=== PATIENT | male | born 1965 | race African-American/Black ===

== ENCOUNTER 2017-12-20 23:20 | Emergency (ER) | payer OTHER ==
[2017-12-20 23:34] VITALS: BMI 35.5
--- NOTE | 2017-12-21 00:42 | PDOC ---
History of Present Illness - General Chief Complaint: Pain Stated Complaint: Syncope/Near Syncope Time Seen by Provider: 12/21/17 00:20 - History of Present Illness Initial Comments: 12/21/17 01:52 The patient is a 52-year-old male, with a past medical history of HTN and prediabetes, who presents to the ED s/p head injury today. Patient states that he slipped while showering, was unable to grab onto anything, and hit the left side of his head against the sink. Patient lost consciousness but does not recall for how long. He is now complaining of headache at the site of the head injury and lightheadedness. Tyler reports that she gave the patient 2 Motrin tablets and applied ice the side of his head. The patient was in his usual state of health this morning. Not on any AC. Denies drug or etoh use today. The patient denies any fever, chills, nausea, vomiting, diarrhea, or abdominal pain. Denies any chest pain or shortness of breath. Denies any numbness or tingling of the extremities. Denies any urinary complaints. Allergies: NKA Surgical History: Appendectomy. PCP: Dr. Durant Past History - Past Medical History Allergies/Adverse Reactions: Allergies Allergy/AdvReac Type Severity Reaction Status Date / Time No Known Allergies Allergy Verified 12/20/17 23:31 Home Medications: Ambulatory Orders Valsartan [Diovan] 160 mg PO DAILY 06/10/17 Asthma: No Cardiac Disorders: No COPD: No Diabetes: No (Pre-diabetic) HTN: Yes Hypercholesterolemia: No Seizures: No - Surgical History Appendectomy: Yes (2-3 yrs ago) - Suicide/Smoking/Psychosocial Hx Smoking History: Never smoked Have you smoked in the past 12 months: No Information on smoking cessation initiated: No Hx Alcohol Use: No Drug/Substance Use Hx: No Substance Use Type: None Review of Systems - Review of Systems Comments:: 12/21/17 01:58 GENERAL/CONSTITUTIONAL: No fever or chills. No weakness. HEAD, EYES, EARS, NOSE AND THROAT: No change in vision. No ear pain or discharge. No sore throat. GASTROINTESTINAL: No nausea, vomiting, diarrhea or constipation. GENITOURINARY: No dysuria, frequency, or change in urination. CARDIOVASCULAR: No chest pain or shortness of breath. RESPIRATORY: No cough, wheezing, or hemoptysis. MUSCULOSKELETAL: No joint or muscle swelling or pain. No neck or back pain. SKIN: No rash NEUROLOGIC: (+)Headache, lightheadedness, loss of consciousness. No vertigo or change in strength/sensation. ENDOCRINE: No increased thirst. No abnormal weight change. HEMATOLOGIC/LYMPHATIC: No anemia, easy bleeding, or history of blood clots. ALLERGIC/IMMUNOLOGIC: No hives or skin allergy. *Physical Exam - Vital Signs Last Vital Signs Temp Pulse Resp BP Pulse Ox 98.3 F 57 L 18 157/87 97 12/20/17 23:31 12/20/17 23:31 12/20/17 23:31 12/20/17 23:31 12/20/17 23:31 - Physical Exam Comments: 12/21/17 01:58 GENERAL: Awake, alert, and fully oriented, in no acute distress. HEAD: Hematoma to left superior temporal scalp, no open wounds. No bony deformities. +ttp along L lateral zygoma, worse with opening mouth EYES: PERRLA, EOMI, sclera anicteric, conjunctiva clear ENT: Auricles normal inspection, hearing grossly normal, nares patent, oropharynx clear without exudates. Moist mucosa. Normal occlusion NECK: Normal ROM, supple, no lymphadenopathy, JVD, or masses LUNGS: Breath sounds equal, clear to auscultation bilaterally. No wheezes, and no crackles HEART: Regular rate and rhythm, normal S1 and S2, no murmurs, rubs or gallops ABDOMEN: Soft, nontender, normoactive bowel sounds. No guarding, no rebound. No masses EXTREMITIES: Normal range of motion, no edema. No clubbing or cyanosis. No cords , erythema, or tenderness BACK: No midline spinal tenderness in cervical/thoracic/lumbar region NEUROLOGICAL: Normal speech, cranial nerves intact, negative pronator drift, 5/ 5 strength in all 4 extremities, normal sensation to light touch in all 4 extremities, normal cerebellar exam, normal gait, normal tone SKIN: Warm, Dry, normal turgor, no rashes or lesions noted. Heart Score/ECG Review #1 12/21/17 02:03 Twelve-lead EKG was performed and reviewed by me. Normal sinus rhythm with first-degree AV block. Rate 60. Normal axis. No ST elevations or T-wave inversions. ED Treatment Course - LABORATORY CBC & Chemistry Diagram: 12/21/17 01:49 12/21/17 01:49 - RADIOLOGY Radiology Studies Ordered: Category Date Time Status HEAD CT WITHOUT CONTRAST [CT] Stat CT Scan 12/21/17 00:31 Ordered Medical Decision Making - Medical Decision Making 12/21/17 02:04 52yo M presents to the ED with mechanical fall, followed by head trauma with LOC. Vitals wnl. Exam with some bony tenderness to palpation over the lateral zygoma. Will obtain CTH, CT facial bones, and CT c-spine. Given LOC will check basic labs. 12/21/17 04:27 All imaging negative for acute pathology Pt given IV tylenol/reglan for samayoa, feels better, requests DC home Likely concussed Labs with bili 2.9, previous bili 2.3. Pt states bili is usually elevated on blood work. Has no abd pain, N/V, pt advised to f/u with PMD within 2-3 days I discussed the physical exam findings, ancillary test results and final diagnoses with the patient. I answered all of the patient's questions. The patient was satisfied with the care received and felt comfortable with the discharge plan and treatment plan. The patient will call their primary care physician within 24 hours to arrange follow-up and will return to the Emergency Department with any new, persistent or worsening symptoms. *DC/Admit/Observation/Transfer Diagnosis at time of Disposition: Fall, Head injury - Discharge Dispostion Disposition: HOME Condition at time of disposition: Stable Decision to Admit order: No - Referrals Referrals: Josué Durant MD [Primary Care Provider] - - Patient Instructions Printed Discharge Instructions: DI for Closed Head Injury Additional Instructions: Follow up with your primary doctor regarding your elevated bilirubin levels. Return to the emergency department if you have any new, worsening, or concerning symptoms. - Post Discharge Activity Forms/Work/School Notes: Back to Work - Attestations Physician Attestion: 12/21/17 04:32 I, Dr. Nessa Melara MD, attest that this document has been prepared under my direction and personally reviewed by me in its entirety. I further attest, that it accurately reflects all work, treatment, procedures and medical decision -making performed by me.
[2017-12-21 02:03] LABS: BASO % 0.7 % (0-2.0); EOS % 2.9 % (0-4.5); HEMATOCRIT 41.4 % (35.4-49); HEMOGLOBIN 14.1 GM/dL (11.7-16.9); LYMPH % 26.8 % (8-40); MCH 31.6 pg (25.7-33.7); MCHC 34.1 g/dl (32.0-35.9); MEAN CELL VOLUME 92.9 fl (80-96); MEAN PLT VOLUME 8.6 fl (7.5-11.1); MONO % 7.7 % (3.8-10.2); NEUT % 61.9 % (42.8-82.8); PLATELET COUNT 262 K/MM3 (134-434); RBC 4.46 M/mm3 (4.00-5.60); RDW 12.6 % (11.9-15.9)
[2017-12-21 02:09] VITALS: BP 152/86; PULSE 55; TEMP 98.2
[2017-12-21 02:27] LABS: ALBUMIN 3.8 g/dl (3.4-5.0); ALK PHOS 101 U/L (45-117); ANION GAP 7 MMOL/L (8-16); BILIRUBIN,TOTAL 2.9 mg/dL (0.2-1); BLOOD UREA NITROGEN 15 mg/dL (7-18); CALCIUM 7.9 mg/dL (8.5-10.1); CHLORIDE 111 mmol/L (98-107); CO2 24 mmol/L (21-32); CREATININE 0.9 mg/dL (0.55-1.3); GLUCOSE,RANDOM 116 mg/dL (74-106); POTASSIUM 3.8 mmol/L (3.5-5.1); SGOT/AST 15 U/L (15-37); SGPT/ALT 14 U/L (13-61); SODIUM 142 mmol/L (136-145); TOT PROT 6.5 g/dl (6.4-8.2)
[2017-12-21] MEDS ORDERED: ACETAMINOPHEN 1000 MG/100 ML VIAL (NON FORMULARY) IVPB ONE (03:46)
[2017-12-21] MEDS ORDERED: METOCLOPRAMIDE HCL INJECTION 10 MG/2 ML VIAL IVPUSH ONE (03:46)
[2017-12-21] MEDS ORDERED: ACETAMINOPHEN INJECTION 100 ML IVPB ONE (04:07)
[2017-12-21] MEDS ORDERED: METOCLOPRAMIDE HCL INJECTION 10 MG/2 ML VIAL ONE (04:09)
--- NOTE | 2017-12-21 11:56 | EKG ---
Test Reason : Blood Pressure : / mmHG Vent. Rate : 060 BPM Atrial Rate : 060 BPM P-R Int : 228 ms QRS Dur : 094 ms QT Int : 392 ms P-R-T Axes : 001 009 033 degrees QTc Int : 392 ms SINUS RHYTHM WITH 1ST DEGREE A-V BLOCK OTHERWISE NORMAL ECG NO PREVIOUS ECGS AVAILABLE Confirmed by THOMPSON FELIX, MARGARETH ([id number]) on 12/21/2017 11:55:35 AM Referred By: Confirmed By:MARGARETH MACKAY MD
== END 2017-12-21 04:33 | disposition home or self-care (01) ==
LOC: JER 23:20
PROC: 3E033GC Introduction of Other Therapeutic Substance into Peripheral Vein, Percutaneous Approach (ICD-10-PCS; principal; 2017-12-20)
PROC: 3E033NZ Introduction of Analgesics, Hypnotics, Sedatives into Peripheral Vein, Percutaneous Approach (ICD-10-PCS; 2017-12-20)
DX: S09.8XXA Other specified injuries of head, initial encounter (principal); R55 Syncope and collapse; W01.198A Fall on same level from slipping, tripping and stumbling with subsequent striking against other object, initial encounter; Y93.E1 Activity, personal bathing and showering; Y92.012 Bathroom of single-family (private) house as the place of occurrence of the external cause; Y99.8 Other external cause status; I10 Essential (primary) hypertension; R73.03 Prediabetes
CPT/HCPCS: 36415; 70450-TC; 70486-TC; 72125-TC; 80053; 85025; 93005; 93010; 99284-25; J0131

== ENCOUNTER 2019-10-24 04:27 | Day surgery (SDC) | payer OTHER ==
[2019-10-22 11:31] VITALS: BMI 36.2
--- NOTE | 2019-10-23 17:17 | PREOP ---
DATE OF ADMISSION: 10/24/2019 ADMISSION DIAGNOSIS: Right neck mass. 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 He had done well, but has developed recent recurrence in the same area. Examination shows a soft mobile 2-cm mass in the right upper neck, and this is clinically consistent with lipoma. He is now admitted for excision of this mass. PAST MEDICAL HISTORY: Primary medical doctor is . He does have a history of high blood pressure. PRIOR SURGERY: Includes appendectomy, inguinal herniorrhaphy, and excisional lipoma. He has undergone anesthesia without reported problem. ALLERGIES TO MEDICATIONS: None known. BLEEDING HISTORY: Negative. FAMILY HISTORY: Negative for bleeding or anesthesia problems. PHYSICAL EXAMINATION: GENERAL: Patient is a well developed male in no distress. HEENT: Head is normal. NECK: Remarkable for 2-cm soft mobile mass in the right upper neck consistent with a lipoma and is adjacent to well healed scar. There is no adenopathy and no thyroid abnormality. DATA: Preoperative labs are pending. COVID-19 test is negative. IMPRESSION: Right neck mass, suspect lipoma. PLAN: Excision of right neck mass under general anesthesia. INFORMED CONSENT: Patient understands the indications, alternatives, nature of risks and benefits of proposed surgery, potential complications including but not limited to anesthesia, bleeding, infection, scar, numbness, and need for further treatment, were discussed in detail. He understands and accepts these risks and wished to proceed with surgery. Questions answered fully. NU VIZCARRA M.D. DANIA/[id number]
[2019-10-24] MEDS ORDERED: LIDOCAINE 1%/EPI 1:100000 (20 ML MULTI DOSE VIAL) ONE (07:09)
[2019-10-24] MEDS ORDERED: LIDOCAINE 1%/EPI 1:100000 (50 ML MULTI DOSE VIAL) INF ONE (07:33)
[2019-10-24] MEDS ORDERED: PROPOFOL 20 ML ONE ×2 (07:51→08:05)
[2019-10-24] MEDS ORDERED: SUCCINYLCHOLINE CHLORIDE 200 MG/10 ML SYRINGE ONE (07:51)
[2019-10-24] MEDS ORDERED: MIDAZOLAM HCL 2 MG/2 ML SINGLE DOSE VIAL ONE (07:51)
--- NOTE | 2019-10-24 07:54 | HP ---
History & Physical Update - History History: No Change - Physical Physical: No Change - Assessment Assessment: No Change - Plan Plan: No Change
[2019-10-24] MEDS ORDERED: DEXAMETHASONE SOD PHOSPHATE 4 MG/1 ML VIAL ONE (08:15)
[2019-10-24] MEDS ORDERED: KETOROLAC TROMETHAMINE 30 MG/1 ML VIAL ONE (08:26)
[2019-10-24] MEDS ORDERED: oxyCODONE HCL 5 MG TABLET PO PRN ×2 (09:16→09:17)
[2019-10-24] MEDS ORDERED: ACETAMINOPHEN 325 MG TABLET (FP) PO PRN ×2 (09:16→09:17)
[2019-10-24] MEDS ORDERED: ONDANSETRON 4 MG/2 ML VIAL IVPUSH PRN (09:17)
--- NOTE | 2019-10-24 09:27 | OP ---
Operative Note - Note: Operative Date: 10/24/19 ([id number]) Pre-Operative Diagnosis: right neck mass Operation: exxision of right neck mass Post-Operative Diagnosis: Same as Pre-op Surgeon: Desean Meyers Anesthesiologist/FISHER DIVER NET: Jane Qiu Anesthesia: General Specimens Removed: right neck mass Estimated Blood Loss (mls): 5 Blood Volume Replaced (mls): 0 Fluid Volume Replaced (mls): 600 Operative Report Dictated: Yes
[2019-10-24] MEDS ORDERED: LACTATED RINGERS SOLUTION 1,000 ML IV SCH ×2 (09:30)
[2019-10-24 10:57] VITALS: BP 136/89; PULSE 70; TEMP 97.5
--- NOTE | 2019-10-24 12:39 | OP ---
DATE OF OPERATION: 10/24/2019 PREOPERATIVE DIAGNOSIS: ANESTHESIOLOGIST: Jane Qiu DO. ANESTHESIA: General via LMA. INDICATION: This 54-year-old male had a history of a right neck mass which was excised many years ago. This was a lipoma. He did well for many years; however, has developed some recurrent swelling in the same location. Examination demonstrates a soft, mobile mass consistent with a recurrent lipoma. He is now brought to surgery for treatment. FINDINGS: Soft tissue mass consistent with lipoma. DESCRIPTION OF PROCEDURE: Patient brought to the operating room, placed on the operating table in supine position. General anesthesia via LMA was induced to a satisfactory level. He was prepped and draped in the usual fashion for surgery. The area in question was palpated and the mass was appreciated. There was a transverse scar just inferior to this which was re-utilized. After marking, it was then incised with a 15-blade and brought down through the skin. Hemostasis was achieved with electrocautery. Careful blunt and sharp dissection revealed the lipomatous mass. This was carefully from its surrounding tissue superficially, then peripherally, and then finally inferiorly. Inferiorly, this did go down to what appeared to be the greater auricular nerve, which was left intact throughout the case. It also abutted the anterior border of the sternocleidomastoid muscle, which was also left intact. This was then excised and sent to pathology for continued studies. Inspection demonstrated relatively dry bed, and minimal electrocauterization was utilized for some fine bleeding spots. It was then closed in layers using inverted 4-0 Vicryl for the subcutaneous layer. A running 5-0 Prolene was then placed in a subcuticular fashion. The wound was then prepped with Benzoin. Steri-Strips were placed, and a Tegaderm dressing was placed. Patient tolerated the procedure well. He was then awakened from general anesthesia and transferred to the PACU in stable condition. Estimated blood loss was less than 5 mL. He received crystalloid during the procedure. The specimen was sent to pathology for continued studies. There were no complications. NU VIZCARRA M.D. DANIA/[id number]
--- NOTE | 2019-10-25 17:28 | PATH ---
Surgical Pathology Report Patient Name: DOTTIE VINES Med. Rec. #: [id number] /Age/Gender: 1965 (Age: 54) / M Account: [id number] Location: [facility] SURGICAL Taken: 10/24/2019 Received: 10/24/2019 Reported: 10/25/2019 Physicians: Desean Meyers M.D. Specimen(s) Received RIGHT NECK MASS Clinical History Neck mass Final Diagnosis NECK MASS, EXCISION: FIBROMUSCULAR TISSUE ADMIXED WITH PORTIONS OF MATURE ADIPOSE TISSUE. Comment: Portions of mature adipose tissue may represent a lipoma in the proper clinical setting. Clinical correlation is recommended. Electronically Signed Christian De La Rosa M.D. Gross Description Received in formalin labeled "neck mass," are 2 meza kirby soft tissue fragment measuring 1.3 x 0.5 x 0.3 cm and 1.2 x 0.9 x 0.5 cm. The specimens are inked blue and serially sectioned. Sectioning reveals focally firm fibrous tissue. The specimen is entirely submitted in 2 cassettes. /10/24/2019 saudi/10/24/2019
== END 2019-10-24 11:38 | disposition home or self-care (01) ==
LOC: JASU-SURG 04:27
PROVIDERS: ATTEND Otolaryngology
PROC: 0JB40ZZ Excision of Right Neck Subcutaneous Tissue and Fascia, Open Approach (ICD-10-PCS; principal; 2019-10-24 08:00)
DX: R22.1 Localized swelling, mass and lump, neck (principal)
CPT/HCPCS: 82962; 88304-TC; 94760